=== PATIENT | female | born 1985 | race Caucasian/White ===

== ENCOUNTER 2017-04-14 22:10 | Emergency (ER) | payer OTHER ==
[~2017-04-14] VITALS: Ht 160 cm; Wt 154.0 kg
[2017-04-14 22:14] VITALS: BP 159/112; PULSE 96; RESP 20; O2SAT 100
[2017-04-14] MEDS ORDERED: Lidocaine 1%-Epi 1:100,000 20 mL Inj ONE (22:36)
[2017-04-14 23:19] LABS: BASOPHILS % (AUTO) 0.3 % (0-3); EOSINOPHILS % (AUTO) 2.4 % (0-5); MONOCYTES % (AUTO) 8.1 % (4-12); Mean Corpuscular Hemoglobin 30.3 pg (27.0-35.0); Mean Corpuscular Volume 86.8 fL (81-100); NEUTROPHILS % (AUTO) 56.4 % (40-74); Platelet Count 311 bil/L (150-400)
--- NOTE | 2017-04-14 23:39 | ED.REPORT ---
HPI-Abd Pain F Under 40 Date of Service Apr 14, 2017 ED Provider: Denny Hernandez MD Pt is a 31 y/o female presenting to the ED with her c/o lower abdominal pain onset 3 weeks ago. For the past few days, she has been experiencing upper abdominal pain and lumbar back pain and since yesterday began experiencing N/V/D , SILVA, dry mouth, diaphoresis, and postural dizziness. Pt denies fever. She decided to come in to the ED today due to a large increase in her low back pain. Her symptoms seemed to begin after her 1st hormone Depo shot which she had 3-4 weeks ago. She has seen her PCP regarding her abdominal pain without a discovered etiology. She has been prescribed Tramadol for her abdominal pain but these have provided no relief. She states she has been on her period since the Depo shot. She has had a cholecystectomy. Nursing Notes Stated Complaint: ABDOMINAL PAIN Chief Complaint: Female Abdominal Pain Nursing Notes Reviewed: Yes Allergies: Coded Allergies: amoxicillin (Verified Allergy, Severe, facial edema, 04/14/17) morphine (Verified Allergy, Severe, low BP, syncope, 04/14/17) Scheduled PRN Tramadol (Tramadol) 50 Mg Tablet 50 MG PO TID PRN PRN For Pain General Time Seen by MD: 23:32 Chief Complaint Abdominal pain Hx Obtained From: Patient Arrived By: Walk-in Sudden in Onset?: No Onset Occurred: More than a week ago... (3 weeks) Symptom Duration: Since onset Progression since Onset: Intermittent Location: : Diffuse Quality: Painful Severity: Current: Mild Severity: Maximum: Moderate Past Medical History Past Medical History None reported Past Surgical History Cholecystectomy Smoking History Never Smoker Social History Alcohol Use: Denies alcohol use Drug Use: Denies drug use Occupation None at the moment Ambulatory Status Independent Review of Systems Constitutional: Denies: Chills, Fever GI: Reports: Abdominal pain, Diarrhea, Nausea, Vomiting Musculoskeletal: Reports: Back pain Complete sys rev & neg: except as marked. Skin: Reports Diaphoresis Neurologic: Reports: Dizziness, Headache Physical Exam Initial Vital Signs Vital Signs (First) Date Time Temp Pulse Resp B/P Pulse Ox O2 Delivery O2 Flow Rate FiO2 04/14/17 22:14 36.6 96 20 159/112 100 Room Air Initial VS: Reviewed, Vital signs normal Head / Eyes: Atraumatic, Normocephalic Neck: Supple, Full range of motion Extremities: Vascular intact, Neuro intact, No swelling Skin: Warm, Dry, No cyanosis Neurologic: Alert, Oriented, Nonfocal Psychiatric: Mood/affect normal, Behavior normal, Normal thought content General/Constitutional: Awake, Alert, No acute distress, Cooperative, Not toxic appearing Appearance / Presentation: Positive: Obese, morbidly Respiratory / Chest: Breath sounds NL, Breath sounds = bilat, No respiratory distress, No rales, No rhonchi, No wheezing Cardiovascular: Heart rate NL, Regular rhythm, Heart sounds NL, No murmurs Abdomen: Atraumatic, Soft Diffuse tenderness upper abdomen bilaterally Back: Full range of motion, Painless range of motion ENT: Airway patent Mouth: Positive: Mucous membranes dry Interpretation & Diagnostics Lab Results Interpretation Result Diagram: 04/14/17 2316 04/14/17 2316 Test 04/14/17 23:16 04/15/17 02:00 White Blood Count 9.3th/mm3 (3.8-10.1) Red Blood Count 4.78mil/mm3 (3.90-5.20) Hemoglobin 14.5g/dL (12.0-15.6) Hematocrit 41.5% (35.0-46.0) Mean Corpuscular Volume 86.8fL (81-100) Mean Corpuscular Hemoglobin 30.3pg (27.0-35.0) Mean Corpuscular Hemoglobin Concent 34.9% (32.0-37.0) Red Cell Distribution Width 12.2% (12.3-15.4) Platelet Count 311bil/L (150-400) Neutrophils (%) (Auto) 56.4% (40-74) Lymphocytes (%) (Auto) 32.4% (14-46) Monocytes (%) (Auto) 8.1% (4-12) Eosinophils (%) (Auto) 2.4% (0-5) Basophils (%) (Auto) 0.3% (0-3) Sodium Level 139mEq/L (134-144) Potassium Level 3.6mEq/L (3.5-5.2) Chloride Level 100mEq/L (97-108) Carbon Dioxide Level 23mmol/L (18-29) Blood Urea Nitrogen 7mg/dL (6-20) Creatinine 0.72mg/dL (0.57-1.00) Estimat Glomerular Filtration Rate 137mL/min (>59) Glucose Level 92mg/dL (60-99) Calcium Level 9.4mg/dL (8.5-10.1) Magnesium Level 1.9mg/dL (1.6-2.6) Total Bilirubin 0.3mg/dL (0.0-1.2) Aspartate Amino Transf (AST/SGOT) 18U/L (0-50) Alanine Aminotransferase (ALT/SGPT) 21U/L (0-32) Alkaline Phosphatase 50U/L (25-150) Total Protein 7.7g/dL (6.4-8.4) Albumin 4.2g/dL (3.4-5.0) Lipase 25U/L (13-60) Hold Urine Received (Received) Lab values outside NL range: no clinical significance. CT Abd / Pelvis Interpretation Conclusion: Normal appendix. No free air, bowel obstruction, or gross intestinal inflammation. Interpreted by Derian Olguin MD Study type: Abdominal CT IV contrast Interpretation / Wet Read by: Interpret - Radiologist Re-Eval/Medical Decision Med Decision/Clinical Course 31-year-old female with multiple somatic complaints she feels are related to her Depo-Provera. No abnormalities were discovered on laboratory evaluation. CT scan is negative. She was hydrated and is being discharged home. She will follow up with her primary doctor as planned NADIA. She was given an additional 10 tablets of tramadol. Re-Evaluation/Progress #1: Time of Eval: 01:47 Patient Status: Condition improved, Mild relief Re-Evaluation/Progress Note: Pt rechecked. Discussed need for CT. She agrees with plan for CT. Re-Evaluation/Progress #2: Time of Eval: 02:15 Patient Status: Condition improved, Moderate relief Re-Evaluation/Progress Note: Pt rechecked. Still experiencing some pain. Informed pt of plan for discharge. Pt understands and agrees with plan for discharge. F/U instructions and RTER warnings given. All questions addressed. Counseled Regarding: Diagnosis, Lab results, Need for follow-up, When/why to return to ED Discharge & Departure Primary Impression: Abdominal pain Abdominal location: generalized Qualified Code: R10.84 - Generalized abdominal pain Additional Impressions: Dehydration On Depo-Provera for contraception Disposition: Home Discharge Condition All VS Reviewed: Yes Condition: Improved Patient Instructions: Acute Abdominal Pain (ED) Additional Instructions: No significant abnormalities are seen on your labs or CT scan. Stay hydrated. Talk to your doctor as planned about the effects of the Depo-Provera and any treatment options. Referrals: OTHER,PHYSICIAN [facility] Scribe Attestation Portions of this note were transcribed by Long Sofia. I, Dr. Hernandez personally performed the history, physical exam and medical decision-making; I reviewed and confirmed the accuracy of the information in the transcribed note. Denny Hernandez MD Apr 14, 2017 23:39 LONG SOFIA Apr 14, 2017 23:42
[2017-04-14] MEDS ORDERED: Ondansetron 2 mg/mL 2 mL Inj IVPUSH PRN (23:50)
[2017-04-14 23:55] LABS: Magnesium 1.9 mg/dL (1.6-2.6)
[2017-04-15] MEDS: HYDROmorphone 0.5 mg/0.5 mL iSecure Syringe IVPUSH PRN ×2 (00:49→02:28)
[2017-04-15 01:46] VITALS: BP 135/62; PULSE 87; RESP 16; O2SAT 99
[2017-04-15] MEDS ORDERED: TRAM50TA2 PO (02:25)
[2017-04-15 03:38] VITALS: BP 143/88; PULSE 90; RESP 16; O2SAT 99
--- NOTE | 2017-04-15 08:51 | DRSVH ---
PROCEDURE: CT ABDOMEN AND PELVIS WITH CONTRAST ([id number]) INDICATIONS: abd pain TECHNIQUE: After the administration of intravenous contrast, 5 mm thick sections acquired from the diaphragm to the symphysis. 5 mm coronal and sagittal reformats were acquired. For radiation dose reduction, the following was used: automated exposure control, adjustment of mA and/or kV according to patient siz e. COMPARISON: None. FINDINGS: Image quality: Good. ABDOMEN: Lung bases: Lung bases are clear. Heart size is normal. Solid organs: Liver and spleen are normal in size and enhancement. Gallbladder previously removed. Biliary system is non dilated. Pancreas enhances normally. No adrenal nodules. Kidneys demonstrat e normal size and enhancement, without hydronephrosis. Peritoneum and bowel: Bowel loops demonstrate normal wall thickness and caliber. No free fluid or a ir. The appendix is normal. Nodes and vessels: No retroperitoneal or mesenteric adenopathy by size criteria. Aorta and inferior vena cava are normal in size. Miscellaneous: No ventral hernias. PELVIS: Genitourinary: Bladder wall thickness is normal. No abnormality of the uterus or ovaries identified . Miscellaneous: No inguinal hernias or adenopathy. Bones: No suspicious bony lesions. No vertebral body compression fractures. IMPRESSION: 1. Cause of pain is not identified. No abnormality is identified. Dictated by: Daryl Michele M.D. on 04/15/2017 at 8:37 this report corresponds to the findings of the preliminary NSR report. Approved by: Daryl Michele M.D. on 04/15/2017 at 8:48
== END 2017-04-15 03:38 | disposition home or self-care (01) ==
LOC: SED 22:10
DX: R10.84 Generalized abdominal pain (principal); E86.0 Dehydration; R11.2 Nausea with vomiting, unspecified; M54.5 Low back pain; R61 Generalized hyperhidrosis; R42 Dizziness and giddiness; R51 Headache; Z79.3 Long term (current) use of hormonal contraceptives; Z88.1 Allergy status to other antibiotic agents; Z88.5 Allergy status to narcotic agent
CPT/HCPCS: 36415; 74177; 80053; 81025; 83690; 83735; 85025; 96374; 96375; 96376; 99285; J1170; J2405; Q9967